=== PATIENT | female | born 1990 | race Caucasian/White ===

== ENCOUNTER 2024-08-28 13:35 | Emergency (ER) | payer BC, SELFPAY ==
[2024-08-28 13:36] VITALS: BMI 61.9
[2024-08-28 13:44] VITALS: BP 151/73; PULSE 100; RESP 17; TEMP 36.9; O2SAT 97
--- NOTE | 2024-08-28 13:55 | PD.EDHAND ---
Upper Extremity Injury RME/HPI General Chief Complaint: Hand/Wrist Problems Stated Complaint: rt thumb laceration Time Seen by Provider: 08/28/24 13:44 Arrival date/time: 08/28/24 13:35 33-year-old female presents emergency department complaints of injury to right thumb patient reports he is using a mandolin today and accidentally injured her right thumb. Patient does report tetanus up-to-date Limitations: no limitations Related Data Home Medications ?Medication ?Instructions ?Recorded ?Confirmed alprazolam 0.25 mg tablet (Xanax) 0.25 mg PO QDAY PRN Anxiety 07/07/23 07/07/23 escitalopram oxalate 20 mg tablet 20 mg PO QDAY 07/07/23 07/07/23 (Lexapro) tamoxifen 20 mg tablet 20 mg PO QDAY 07/07/23 07/07/23 trazodone 50 mg tablet 50 mg PO QDAY 07/07/23 07/07/23 Previous Rx's ?Medication ?Instructions ?Recorded docusate sodium 100 mg capsule 100 mg PO BID #40 caps 07/08/23 (Colace) ibuprofen 600 mg tablet 600 mg PO Q8H PRN pain (scale 07/08/23 score 4-6) #15 tabs tramadol 50 mg tablet 100 mg (2 x 50 mg) PO Q6H PRN pain 07/08/23 (scale score 7-10) #40 tabs Allergies Allergy/AdvReac Type Severity Reaction Status Date / Time acetaminophen [From Vicodin] AdvReac Vomiting Verified 08/28/24 13:38 hydrocodone [From Vicodin] AdvReac Vomiting Verified 08/28/24 13:38 Review of Systems Review of Systems Systems Reviewed: All systems reviewed, normal except as documented Constitutional Constitutional: Reports system reviewed and no additional complaints, except as documented, Denies fever(s) and Denies headache(s) Eyes Eyes: Reports system reviewed and no additional complaints, except as documented and Denies blurry vision ENT Ears, Nose, Mouth, and Throat: Reports system reviewed and no additional complaints, except as documented, Denies headache(s), Denies nasal congestion and Denies nasal discharge Cardiovascular Cardiovascular: Reports system reviewed and no additional complaints, except as documented, Denies chest pain and Denies dyspnea Respiratory Respiratory: Reports system reviewed and no additional complaints, except as documented, Denies chest congestion, Denies cough and Denies dyspnea Gastrointestinal Gastrointestinal: Reports system reviewed and no additional complaints, except as documented and Denies abdominal pain Integumentary/Breasts Skin/Breast: Reports system reviewed and no additional complaints, except as documented, Denies rash and Reports wounds (Avulsion right thumb) Neurologic Neurologic: Reports system reviewed and no additional complaints, except as documented, Reports as per HPI and Denies headache(s) Past Medical History Past Medical History NEUROLOGIC: Positive Neurological Disorders and Migraine; Negative Seizures CARDIAC: Positive Cardiac Disorders and Hypertension (no meds, Dr wants her to loose weight); Negative Congestive Heart Failure RESPIRATORY: Negative Chronic Obstructive Pulmonary Disease (COPD) GASTROINTESTINAL: Positive Gastrointestinal Disorders (liver enzymes elevated), Gall Bladder Disease and Obesity GENITOURINARY: Negative Genitourinary Disorders or Renal Disease REPRODUCTIVE: Positive Breast Cancer (Right breast cancer); Negative Endometriosis or Previous Pregnancies MUSCULOSKELETAL: Negative Musculoskeletal Disorders ENDOCRINE: Negative Endocrine Disorders, Diabetes Mellitus Type 1 or Diabetes Mellitus Type 2 HEMATOLOGIC: Negative Blood Disorders PSYCHO/SOCIAL: Positive Recreational Drug Use (MJ), Depression and Anxiety OTHER HISTORY: Positive Radiation Therapy (2021), Cancer and Breast Cancer (Right breast cancer); Negative Hospitalization, Autoimmune Disease, Shingles, Blood Transfusions, Blood Transfusion Reaction, Anesthesia Reactions or MRSA Family History FAMILY HISTORY: Positive Family Cardiac Disorders; Negative Family Cancer, Family Surgery or Family Anesthesia Reaction Surgical History SURGICAL: Positive Lumpectomy (Right 2021) Social History SMOKING STATUS: Current every day smoker SUBSTANCE USE: does not use ED Exam General Limitations: Present no limitations General appearance: Present alert and in no apparent distress Head Head exam: Present atraumatic Eye Eye exam: Present normal appearance, PERRL and EOMI ENT ENT exam: Present normal exam, normal oropharynx and mucous membranes moist Neck Neck exam: Present normal inspection, full ROM and trachea midline Chest Chest inspection: Present normal inspection and symmetric chest wall rise Respiratory Respiratory exam: Present normal lung sounds bilaterally Cardiovascular Cardiovascular exam: Present regular rate, normal rhythm and normal heart sounds Abdominal Exam Abdominal exam: Present soft and normal bowel sounds Extremities Exam Extremities exam: Present full ROM, tenderness, normal capillary refill and other (Avulsion distal tip right thumb); Absent joint swelling Back Exam Back exam: Present normal inspection and full ROM Neurological Exam Neurological exam: Present alert, oriented X3 and CN II-XII intact Psychiatric Psychiatric exam: Present normal affect and normal mood Skin Skin exam: Present warm, dry and other (Avulsion skin distal tip right thumb) Course Quality Measures none Orders Category Date Time Status Wound Care NOW Care 08/28/24 13:55 Active Vital Signs Vital signs: Vital Signs Temperature 98.5 F 08/28/24 13:44 Pulse Rate 100 08/28/24 13:44 Respiratory Rate 17 08/28/24 13:44 Blood Pressure 151/73 H 08/28/24 13:44 Pulse Oximetry (%) 97 08/28/24 13:44 Oxygen Delivery Method Room Air 08/28/24 13:44 O2 saturation 97% room air within normal limits Extremity Injury MDM Narrative MDM Narrative:: 33-year-old female presents emergency department complaints of injury to right thumb patient reports he is using a mandolin today and accidentally injured her right thumb. Patient does report tetanus up-to-date On exam patient has avulsion distal tip right thumb There is no skin to bring back together at this time there is a complete avulsion distal aspect skin. Wound irrigated Surgicel applied no active bleeding at time of discharge Patient discharged home in no distress to follow-up with primary care doctor in the next 24 to 48 hours and for any worsening symptoms to return to the ER immediately Patient data External records reviewed:: [facility] previous records Clinical information provided by:: patient Social determinants that could affect healthcare access:: none Patient has the following chronic illnesses:: See history How is presenting disease/condition affected by chronic disease/condition?: uneffected by Evaluation data The following diagnostics were reviewed and interpreted by me:: other (specify) (N/A) Lab and/or radiology exams considered but not ordered:: Consider not ordered Interpretation Summary: N/A Medications / Prescriptions Medications or Prescriptions considered but not ordered:: No meds Medication administrations:: No meds Consultations Consultation(s) initiated? (list below): No Diagnosis Upper Extremity Injury Differential Diagnosis: other (Laceration, abrasion, avulsion) Most likely diagnosis given after review of the tests above:: Avulsion Admission Indicated Admission indicated?: not indicated Admission Request Was there a request for admission?: No Disposition Plan Disposition Plan: Discharge Discharge Attestation Discharge Attestation: The patient and all family members were given an opportunity to ask questions and understood the discharge instructions. Discharge instructions specifically effects, indications for sooner follow up or return to the emergency department, and the expected course of current diagnosis. Patient condition: Stable Discharge Plan Plan Patient Disposition: HOME (Self Care) Disposition Comment: Stable Prescriptions/Referrals Prescriptions/Med Rec: No Action trazodone 50 mg Tablet 50 mg PO QDAY alprazolam [Xanax] 0.25 mg Tablet 0.25 mg PO QDAY PRN (Reason: Anxiety) tamoxifen 20 mg Tablet 20 mg PO QDAY escitalopram oxalate [Lexapro] 20 mg Tablet 20 mg PO QDAY docusate sodium [Colace] 100 mg capsule 100 mg PO BID Qty: 40 0RF ibuprofen 600 mg tablet 600 mg PO Q8H PRN (Reason: pain (scale score 4-6)) Qty: 15 0RF tramadol 50 mg tablet 100 mg PO Q6H PRN (Reason: pain (scale score 7-10)) Qty: 40 0RF Problem List Clinical Impression: Avulsion of skin of right thumb Patient/Caregiver Discharge Instructions Education Materials: ED Skin Avulsion Additional Instructions: Please follow up with your primary care doctor in the next 24-48hrs for any worsening symptoms return here immediately Print Language: Setswana Stand Alone Forms: Vicky Award Info., Patient Portal Info Letter PA/HEALTHCARE RISK CONTROL CONSULTANT Supervising Physician PA/HEALTHCARE RISK CONTROL CONSULTANT Supervising Physician: Dr. Salguero
== END 2024-08-28 14:28 | disposition home or self-care (01) ==
LOC: SERX 14:17
PROVIDERS: Emergency Provider Emergency Medicine; PCP Physician Assistant
DX: S61.011A Laceration without foreign body of right thumb without damage to nail, initial encounter (principal); W27.4XXA Contact with kitchen utensil, initial encounter
CPT/HCPCS: 99282

== ENCOUNTER → 2024-08-30 | Outpatient (CLI) | payer BC, SELFPAY ==
[2024-08-30 16:39] LABS: Basophils # (Auto) 0.1 Thou/mm3 (0.0-0.2); Basophils % (Auto) 1 % (0-2.5); Eosinophils # (Auto) 0.1 Thou/mm3 (0.0-0.5); Eosinophils % (Auto) 1 % (0-10); Hematocrit 43.4 % (36.0-46.0); Hemoglobin 14.2 g/dL (12.0-16.0); Immature Granulocytes % (Auto) 1 % (0-0); Immature Granulocytes Auto 0.11 Thou/mm3 (0.00-0.00); Lymphocytes # (Auto) 3.3 Thou/mm3 (1.0-4.8); Lymphocytes % (Auto) 33 % (10-50); Mean Corpuscular HGB Conc 32.7 g/dl (31.0-37.0); Mean Corpuscular Hemoglobin 30.3 pg (25.0-35.0); Mean Corpuscular Volume 93 fL (80-100); Monocytes # (Auto) 0.6 Thou/mm3 (0.0-0.8); Monocytes % (Auto) 6 % (0-12); Neutrophils # (Auto) 5.8 Thou/mm3 (1.8-7.7); Neutrophils % (Auto) 58 % (37-80); Nucleated Red Blood Cell % 0 /100 WBC (0); Platelet Count 361 Thou/mm3 (140-440); RDW Standard Deviation 43.3 fL (36.4-46.3); Red Blood Count 4.69 Miln/mm3 (4.00-5.20)
[2024-08-30 17:10] LABS: Alanine Aminotransferase 21 U/L (10-49); Albumin, Serum 4.4 gm/dL (3.5-5.0); Albumin/Globulin Ratio 1.5 (1.2-2.2); Alkaline Phosphatase 74 U/L (46-116); Anion Gap 7 (7-16); Aspartate Amino Transferase 21 U/L (0-34); BUN/Creatinine Ratio 14 Ratio (12-20); Bilirubin,Total 0.5 mg/dL (0.3-1.2); Blood Urea Nitrogen 13 mg/dL (9-23); Calcium 9.8 mg/dL (8.3-10.6); Calcium (Corrected) 9.8 mg/dL (8.5-10.1); Carbon Dioxide 27.5 mMol/L (20.0-31.0); Chloride 104 mMol/L (98-107); Creatinine (Component) 0.9 mg/dL (0.6-1.3); Globulin 2.9 gm/dL (2.3-3.5); Glucose 96 mg/dL (74-106); Osmolality,Calculated 275 (275-295); Potassium 4.2 mMol/L (3.4-5.1); Sodium 138 mMol/L (136-145); Total Protein 7.3 gm/dL (5.7-8.2); eGFR > 60 See Note
[2024-08-30 17:21] LABS: CA 15-3 5.4 U/mL (<32.4); Carcinoembryonic Antigen 0.8 ng/mL (0.0-5.0)
== END | disposition home or self-care (01) ==
LOC: SCTO 15:36
PROVIDERS: PCP Physician Assistant; Referring Provider Nurse Practitioner Family; Visit Provider Nurse Practitioner Family
DX: C50.511 Malignant neoplasm of lower-outer quadrant of right female breast (principal)
CPT/HCPCS: 36415; 80053; 82378; 85025; 86300

== ENCOUNTER 2024-09-01 09:04 | Outpatient (RCR) | payer BC, SELFPAY | END 2024-09-16 23:59 | disposition home or self-care (01) | LOC: SCTC 09:04 | PROVIDERS: PCP Physician Assistant; Referring Provider Physician Assistant; Visit Provider Nurse Practitioner Family | DX: Z51.11 Encounter for antineoplastic chemotherapy (principal); C50.811 Malignant neoplasm of overlapping sites of right female breast; Z17.0 Estrogen receptor positive status [ER+]; Z17.21 Progesterone receptor positive status; Z17.32 Human epidermal growth factor receptor 2 negative status; Z90.11 Acquired absence of right breast and nipple; Z92.3 Personal history of irradiation; L40.9 Psoriasis, unspecified; E66.01 Morbid (severe) obesity due to excess calories; F41.9 Anxiety disorder, unspecified; F32.A Depression, unspecified; Z79.810 Long term (current) use of selective estrogen receptor modulators (SERMs) | CPT/HCPCS: 96402; J9217 ==

== ENCOUNTER → 2024-09-20 | Outpatient (CLI) | payer BC, SELFPAY ==
--- NOTE | 2024-09-20 13:40 | XR_ITS ---
Examination: Bone densitometry Date and time of exam:September 20, 2024 1351 hours INDICATIONS: 33-year-old female breast carcinoma diagnosis Technique: Lumbar spine and hip total bone mineralization values of an calculated. Peak reference and age match control results have been displayed. Findings: Lumbar spine total bone mineralization is1.095 gm/cm2. This is 0.4 standard deviations above peak reference. This is 0.5 standard deviations above age-matched controls. Hip total bone mineralization is 1.014 gm/cm2 This is 0.6 standard deviations above peak reference. This is 0.7 standard deviations above age-matched controls Impression: There is normal mineralization based on lumbar spine measurements. There is normal mineralization based on hip measurements
== END | disposition home or self-care (01) ==
LOC: CDIM 13:21
PROVIDERS: PCP Physician Assistant; Referring Provider Nurse Practitioner Family; Visit Provider Nurse Practitioner Family
DX: C50.511 Malignant neoplasm of lower-outer quadrant of right female breast (principal)
CPT/HCPCS: 77080

== ENCOUNTER → 2024-10-03 | Outpatient (CLI) | payer BC, SELFPAY ==
[2024-10-03 17:22] LABS: Basophils # (Auto) 0.1 Thou/mm3 (0.0-0.2); Basophils % (Auto) 1 % (0-2.5); Eosinophils # (Auto) 0.1 Thou/mm3 (0.0-0.5); Eosinophils % (Auto) 1 % (0-10); Hematocrit 39.5 % (36.0-46.0); Hemoglobin 13.4 g/dL (12.0-16.0); Immature Granulocytes % (Auto) 1 % (0-0); Immature Granulocytes Auto 0.05 Thou/mm3 (0.00-0.00); Lymphocytes # (Auto) 3.2 Thou/mm3 (1.0-4.8); Lymphocytes % (Auto) 35 % (10-50); Mean Corpuscular HGB Conc 33.9 g/dl (31.0-37.0); Mean Corpuscular Volume 91 fL (80-100); Monocytes # (Auto) 0.6 Thou/mm3 (0.0-0.8); Monocytes % (Auto) 6 % (0-12); Neutrophils # (Auto) 5.2 Thou/mm3 (1.8-7.7); Neutrophils % (Auto) 57 % (37-80); Nucleated Red Blood Cell % 0 /100 WBC (0); Platelet Count 338 Thou/mm3 (140-440); RDW Standard Deviation 43.2 fL (36.4-46.3); Red Blood Count 4.32 Miln/mm3 (4.00-5.20); White Blood Count 9.3 Thou/mm3 (3.6-11.0)
[2024-10-03 17:44] LABS: Alanine Aminotransferase 23 U/L (10-49); Albumin, Serum 4.5 gm/dL (3.5-5.0); Albumin/Globulin Ratio 1.7 (1.2-2.2); Alkaline Phosphatase 79 U/L (46-116); Anion Gap 10 (7-16); Aspartate Amino Transferase 20 U/L (0-34); BUN/Creatinine Ratio 12 Ratio (12-20); Bilirubin,Total 0.4 mg/dL (0.3-1.2); Blood Urea Nitrogen 12 mg/dL (9-23); Calcium 9.7 mg/dL (8.3-10.6); Calcium (Corrected) 9.7 mg/dL (8.5-10.1); Carbon Dioxide 25.9 mMol/L (20.0-31.0); Chloride 102 mMol/L (98-107); Globulin 2.6 gm/dL (2.3-3.5); Glucose 93 mg/dL (74-106); Osmolality,Calculated 275 (275-295); Potassium 4.3 mMol/L (3.4-5.1); Sodium 138 mMol/L (136-145); Total Protein 7.1 gm/dL (5.7-8.2); eGFR > 60 See Note
[2024-10-03 18:01] LABS: CA 15-3 7.1 U/mL (<32.4); Carcinoembryonic Antigen 0.7 ng/mL (0.0-5.0)
== END | disposition home or self-care (01) ==
LOC: COPL 16:29 → SCTO 16:32
PROVIDERS: PCP Physician Assistant; Referring Provider Nurse Practitioner Family; Visit Provider Nurse Practitioner Family
DX: C50.511 Malignant neoplasm of lower-outer quadrant of right female breast (principal)
CPT/HCPCS: 36415; 80053; 82378; 85025; 86300

== ENCOUNTER 2024-10-04 07:17 | Outpatient (RCR) | payer BC, SELFPAY | END 2024-10-17 23:59 | disposition home or self-care (01) | LOC: SCTC 07:17 | PROVIDERS: PCP Physician Assistant; Referring Provider Physician Assistant; Visit Provider Nurse Practitioner Family | DX: C50.811 Malignant neoplasm of overlapping sites of right female breast (principal); Z17.0 Estrogen receptor positive status [ER+]; Z17.21 Progesterone receptor positive status; Z17.32 Human epidermal growth factor receptor 2 negative status; Z90.11 Acquired absence of right breast and nipple; Z92.3 Personal history of irradiation; Z79.810 Long term (current) use of selective estrogen receptor modulators (SERMs); E66.01 Morbid (severe) obesity due to excess calories; F41.9 Anxiety disorder, unspecified; F32.A Depression, unspecified | CPT/HCPCS: 96402; J9217 ==

== ENCOUNTER → 2024-11-14 | Outpatient (CLI) | payer BC, SELFPAY ==
[2024-11-14 17:33] LABS: Basophils # (Auto) 0.1 Thou/mm3 (0.0-0.2); Basophils % (Auto) 1 % (0-2.5); Eosinophils # (Auto) 0.1 Thou/mm3 (0.0-0.5); Eosinophils % (Auto) 1 % (0-10); Hematocrit 42.6 % (36.0-46.0); Hemoglobin 14.1 g/dL (12.0-16.0); Immature Granulocytes % (Auto) 1 % (0-0); Immature Granulocytes Auto 0.08 Thou/mm3 (0.00-0.00); Lymphocytes % (Auto) 26 % (10-50); Mean Corpuscular HGB Conc 33.1 g/dl (31.0-37.0); Mean Corpuscular Hemoglobin 30.5 pg (25.0-35.0); Mean Corpuscular Volume 92 fL (80-100); Monocytes # (Auto) 0.8 Thou/mm3 (0.0-0.8); Monocytes % (Auto) 7 % (0-12); Neutrophils # (Auto) 7.6 Thou/mm3 (1.8-7.7); Neutrophils % (Auto) 65 % (37-80); Nucleated Red Blood Cell % 0 /100 WBC (0); Platelet Count 331 Thou/mm3 (140-440); RDW Standard Deviation 42.5 fL (36.4-46.3); Red Blood Count 4.63 Miln/mm3 (4.00-5.20); White Blood Count 11.6 Thou/mm3 (3.6-11.0)
[2024-11-14 18:36] LABS: Alanine Aminotransferase 17 U/L (10-49); Albumin, Serum 4.4 gm/dL (3.5-5.0); Albumin/Globulin Ratio 1.4 (1.2-2.2); Alkaline Phosphatase 81 U/L (46-116); Anion Gap 8 (7-16); Aspartate Amino Transferase < 8 U/L (0-34); BUN/Creatinine Ratio 17 Ratio (12-20); Bilirubin,Total 0.3 mg/dL (0.3-1.2); Blood Urea Nitrogen 15 mg/dL (9-23); Calcium 9.7 mg/dL (8.3-10.6); Calcium (Corrected) 9.7 mg/dL (8.5-10.1); Carbon Dioxide 27.4 mMol/L (20.0-31.0); Chloride 101 mMol/L (98-107); Creatinine (Component) 0.9 mg/dL (0.6-1.3); Globulin 3.1 gm/dL (2.3-3.5); Glucose 92 mg/dL (74-106); Osmolality,Calculated 272 (275-295); Potassium 4.4 mMol/L (3.4-5.1); Sodium 136 mMol/L (136-145); Total Protein 7.5 gm/dL (5.7-8.2); eGFR > 60 See Note
[2024-11-14 18:37] LABS: CA 15-3 5.8 U/mL (<32.4); Carcinoembryonic Antigen 0.6 ng/mL (0.0-5.0)
== END | disposition home or self-care (01) ==
LOC: SCTO 16:44
PROVIDERS: PCP Physician Assistant; Referring Provider Nurse Practitioner Family; Visit Provider Nurse Practitioner Family
DX: C50.511 Malignant neoplasm of lower-outer quadrant of right female breast (principal)
CPT/HCPCS: 36415; 80053; 82378; 85025; 86300

== ENCOUNTER 2024-11-15 14:54 | Outpatient (RCR) | payer BC, SELFPAY ==
--- NOTE | 2024-11-19 21:22 | CTCFLWUP_ITS ---
Patient: MARIE DUNCAN : 1990 Page 2 of 3 FOLLOW UP NOTE DATE OF SERVICE: 11/15/2024 NAME: MARIE DUNCAN ACCOUNT: [id number] : 1990 AGE: 34 INTERVAL HISTORY: ONCOLOGY HISTORY: DIAGNOSIS: Malignant neoplasm of lower-outer quadrant of right female breast [ICD10] C50.511 Stage Ia (pT1b (7 mm) snN0), grade 1, ER strongly positive (85%), OH strongly positive (95%), HER2/dheeraj negative, Ki-67 less than 5%, Oncotype recurrence score 21, infiltrating ductal carcinoma of the right breast. S/p lumpectomy and sentinel lymph node biopsy (02/02/2022) S/p adjuvant radiation therapy (04/15/2022 - 06/03/2022) BRCA 1and2 negative. On tamoxifen since November 2021. Unable to tolerate Lupron which was causing significant hot flashes ( 05/21/2022-07/27/2022). Lupron restarted 11/15/2023 Psoriasis. Morbid obesity. 364 pounds. Anxiety and depression DATE OF DIAGNOSIS: 10/29/2021 ER/OH positive HER2 negative PATHOLOGY: Invasive ductal carcinoma Stage Ia (pT1b (7 mm) snN0), grade 1, ER strongly positive (85%), OH strongly positive (95%), HER2/dheeraj negative, Ki-67 less than 5%, Oncotype recurrence score 21, infiltrating ductal carcinoma of the right breast. S/p lumpectomy and sentinel lymph node biopsy (02/02/2022) S/p adjuvant radiation therapy (04/15/2022 - 06/03/2022) BRCA 1and2 negative. On tamoxifen (11/2021-)and leuprolide (05/21/2022-) Unable to tolerate Lupron which was causing significant hot flashes ( 05/21/2022-07/27/2022). Lupron restarted 11/15/2023 Tolerating tamoxifen and Lupron well. Last menstrual period was 02/2023 Discontinue tamoxifen Start anastrozole 1 mg daily. Will take anastrozole for 7 years, followed by 2 years of tamoxifen. Continue Lupron7.5mg IM monthly. Right breast ultrasound and right breast diagnostic mammogram. #2. Risk of osteoporosis DEXA Start Citracal with vitamin D. #3. Psoriasis. Continue following up with PCP #4. Morbid obesity. 354 LB Lifestyle modification #5. Anxiety and depression Continue following up with PCP STAGE/TNM: T1b N0 M0 TREATMENT HISTORY: Care?Plan Start?Date Cycle Day Intent Lupron?7.5?mg 04/27/2022 1 30 Curative?(adjuvant) Lupron?7.5?mg 11/03/2023 1 30 Palliative Lupron?22.5?mg?q?3?mon 05/15/2024 1 90 Curative?(adjuvant) Lupron?7.5?mg 05/25/2024 1 30 Curative?(adjuvant) HISTORY OF PRESENT ILLNESS: PREVIOUS NOTE: Marie Duncan is a 34-year-old ENG speaking female with history of psoriasis as well as morbid obesity was having pain in the right breast for about a year. Her primary care doctor felt a nodule in the right breast in September 2021. 10/08/2021: Right breast diagnostic mammogram as well as right breast ultrasound? 10/29/2021: Patient had needle core biopsy of the right breast lesion? 11/13/2021: Bilateral breast MRI? 11/21/2021: BRCA 1 and 2 negative ([facility] diagnostic testing) November 2021: Patient was started on tamoxifen. 02/02/2022: Ms. Duncan had right breast lumpectomy and sentinel lymph node biopsy. 03/30/2022: Oncotype DX test 04/15/2022 - 06/03/2022: Ms. Duncan received 6000 cGy radiation therapy to the right breast in 49 fractions. 05/21/2022: Patient received first dose of Lupron 7.5 mg IM. 07/27/2022: Lupron discontinued due to significant side effects including hot flashes which were making her feel miserable. 11/15/2023: Lupron restarted 07/24/2024: Left breast diagnostic mammogram-benign findings, return to yearly follow-up mammogram 07/24/2024: Left breast ultrasound-negative study OTHER MEDICAL HISTORY/CONDITIONS: Covid - Nov 2021 High cholesterol - diet controlled Right breast RFID guided tylectomy with vertical mammoplasty/tissue rearrangement and Left breast cresent mammoplasty for symmetrization - 02/02/22 FAMILY HISTORY: Patient?denies?family?cancer?history. 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 Tobacco?Pack?per?Day:?0 Tobacco?Use?Years:?0 Tobacco?Use:?0 ETOH?Use:?Socially Drug?Note:?Smokes marijuana daily for 2 yrs Social?History?Note:?Lives?with? PUBLIC HEALTH NUTRITIONIST HISTORY: Menarche?-?Age:?11 Date?LMP:?12/22/2021 Hormone?Use:? control medication x 5yrs :?0 Live?Births:?0 Age?1st?:?1 MEDICATIONS: 1. anastrozole - 1 mg 1 tab 1 tab po q daily 2. Citracal + D Slow Release - 600 mg-12.5 mcg (500 unit) 1 tab one tab po twice a day 3. Lexapro - 20 mg 1 tab Daily 4. lisinopril - 20 mg 1 tab Daily 5. tamoxifen - 20 mg 1 tab Daily 6. traZODone - 50 mg 1 tab Daily 7. Xanax - 0.25 mg Daily Medications Last Reconciled by Mandy Smith MA on 11/15/2024 ALLERGIES: tramadol; hydrocodone-acetaminophen REVIEW OF SYSTEMS: A complete 14-point review of systems was performed and is negative except as noted in interval history. PHYSICAL EXAMINATION: VITAL SIGNS: Temperature?100, B/P?154/85, Oxygen?Saturation?96% Weight?356?lbs (Change?since?11/02/24:?2.2?lbs) PAIN: 0 - No pain ECOG Performance Status: 0 - Asymptomatic and fully active GENERAL APPEARANCE: Appears well, in no apparent distress, appropriately interactive. HEENT: Normocephalic, no temporal wasting, normal conjunctiva, no scleral icterus, normal hearing, lips without lesions, neck normal range of motion. CARDIOVASCULAR: Not assessed. PULMONARY: Normal respiratory effort, no respiratory distress or use of accessory muscles, speaking in full sentences, no tachypnea. EXTREMITIES: No pedal edema or cyanosis. SKIN: Normal skin appearance. NEUROLOGIC: Alert and oriented x4. PSHYCHIATRIC: Appropriate affect, mood normal, behavior normal, intact thought and speech. LABORATORY DATA: I have personally reviewed and interpreted each of the patient?s relevant lab tests, abnormal findings are below: Date 11/14/24 ??WHITE?BLOOD?COUNT?(Thou/mm3) 11.6?H ??RED?BLOOD?COUNT?(Miln/mm3) 4.63 ??HEMOGLOBIN?(gm/dl) 14.1 ??HEMATOCRIT?(%) 42.6 ??PLATELET?COUNT?(Thou/mm3) 331 ??NEUTROPHILS?%,?AUTO?(%) 65 ??LYMPH?%,?AUTO?(%) 26 ??NEUTROPHILS,?AUTO?(Thou/mm3) 7.6 ASSESSMENT/PLAN: Stage Ia (pT1b (7 mm) snN0), grade 1, ER strongly positive (85%), OH strongly positive (95%), HER2/dheeraj negative, Ki-67 less than 5%, Oncotype recurrence score 21, infiltrating ductal carcinoma of the right breast. S/p lumpectomy and sentinel lymph node biopsy (02/02/2022) S/p adjuvant radiation therapy (04/15/2022 - 06/03/2022) BRCA 1and2 negative. On tamoxifen (11/2021-)and leuprolide (05/21/2022-) Unable to tolerate Lupron which was causing significant hot flashes ( 05/21/2022-07/27/2022). Lupron restarted 11/15/2023 Tolerating tamoxifen and Lupron well. Last menstrual period was 02/2023 Discontinue tamoxifen Start anastrozole 1 mg daily. Will take anastrozole for 7 years, followed by 2 years of tamoxifen. Continue Lupron7.5mg IM monthly. Right breast ultrasound and right breast diagnostic mammogram. #2. Risk of osteoporosis DEXA shows normal density On Citracal with vitamin D. Will start adjuvant Zometa for prevention of breast cancer and to prevent osteoporosis once dental clearance #3. Psoriasis. Continue following up with PCP #4. Morbid obesity. 354 LB Lifestyle modification #5. Anxiety and depression Continue following up with PCP CBC CMP dental evaluation for starting Zometa RETURN TO CLINIC: 6 months BILLING AND COMPLIANCE: I reviewed external records from providers outside my specialty as summarized above. I spent a total of 50 minutes on this patient?s care on the day of their visit excluding time spent related to any billed procedures. This time includes time spent with the patient as well as time spent documenting in the medical record, reviewing patients records and tests, obtaining history, placing orders, communicating with other healthcare professionals, counseling the patient, family or caregiver, and/or care coordination for the diagnoses above. Electronically Signed by: Jose Collazo MD T: 9:20 PM CC: PCP: Babs Sauer Referring: Babs Sauer This document was completed utilizing speech recognition software. Grammatical errors, random word insertions, pronoun errors, and incomplete sentences are an occasional consequence of this system due to software limitations, ambient noise, and hardware issues. Any formal questions or concerns about the content, text or information contained within the body of this dictation should be directly addressed to the provider for clarification.
== END 2024-11-17 23:59 | disposition home or self-care (01) ==
LOC: SCTC 14:54
PROVIDERS: PCP Physician Assistant; Referring Provider Physician Assistant; Visit Provider Internal Medicine Hematology & Oncology
DX: Z51.11 Encounter for antineoplastic chemotherapy (principal); C50.811 Malignant neoplasm of overlapping sites of right female breast; Z17.0 Estrogen receptor positive status [ER+]; Z17.21 Progesterone receptor positive status; Z17.32 Human epidermal growth factor receptor 2 negative status; Z92.3 Personal history of irradiation; Z79.811 Long term (current) use of aromatase inhibitors; Z79.818 Long term (current) use of other agents affecting estrogen receptors and estrogen levels; E66.01 Morbid (severe) obesity due to excess calories
CPT/HCPCS: 96402; 99212; J9217; G0463

== ENCOUNTER 2024-12-11 08:35 | Outpatient (RCR) | payer BC, SELFPAY | END 2024-12-15 23:59 | disposition home or self-care (01) | LOC: SCTC 08:35 | PROVIDERS: PCP Physician Assistant; Referring Provider Physician Assistant; Visit Provider Internal Medicine Hematology & Oncology | DX: Z51.11 Encounter for antineoplastic chemotherapy (principal); C50.811 Malignant neoplasm of overlapping sites of right female breast; Z17.0 Estrogen receptor positive status [ER+]; Z17.21 Progesterone receptor positive status; Z17.32 Human epidermal growth factor receptor 2 negative status; Z90.11 Acquired absence of right breast and nipple; Z92.3 Personal history of irradiation; Z79.810 Long term (current) use of selective estrogen receptor modulators (SERMs); Z79.818 Long term (current) use of other agents affecting estrogen receptors and estrogen levels; E66.01 Morbid (severe) obesity due to excess calories; L40.9 Psoriasis, unspecified; F41.9 Anxiety disorder, unspecified; F32.A Depression, unspecified | CPT/HCPCS: 96402; J9217 ==

== ENCOUNTER 2025-01-10 09:28 | Outpatient (RCR) | payer BC, SELFPAY | END 2025-01-15 23:59 | disposition home or self-care (01) | LOC: SCTC 09:28 | PROVIDERS: PCP Family Medicine; Referring Provider Internal Medicine Hematology & Oncology; Visit Provider Internal Medicine Hematology & Oncology | DX: Z51.11 Encounter for antineoplastic chemotherapy (principal); C50.811 Malignant neoplasm of overlapping sites of right female breast; Z17.0 Estrogen receptor positive status [ER+]; Z17.21 Progesterone receptor positive status; Z17.32 Human epidermal growth factor receptor 2 negative status; E66.01 Morbid (severe) obesity due to excess calories; Z90.11 Acquired absence of right breast and nipple; Z92.3 Personal history of irradiation; Z79.811 Long term (current) use of aromatase inhibitors; L40.9 Psoriasis, unspecified | CPT/HCPCS: 36591; 96402; J9217 ==

== ENCOUNTER → 2025-02-14 | Outpatient (CLI) | payer BC, SELFPAY ==
[2025-02-14 17:35] LABS: Basophils # (Auto) 0.1 Thou/mm3 (0.0-0.2); Basophils % (Auto) 1 % (0-2.5); Eosinophils # (Auto) 0.2 Thou/mm3 (0.0-0.5); Eosinophils % (Auto) 1 % (0-10); Hemoglobin 14.1 g/dL (12.0-16.0); Immature Granulocytes % (Auto) 1 % (0-0); Immature Granulocytes Auto 0.11 Thou/mm3 (0.00-0.00); Lymphocytes % (Auto) 26 % (10-50); Mean Corpuscular HGB Conc 33.6 g/dl (31.0-37.0); Mean Corpuscular Hemoglobin 30.1 pg (25.0-35.0); Mean Corpuscular Volume 90 fL (80-100); Monocytes # (Auto) 0.8 Thou/mm3 (0.0-0.8); Monocytes % (Auto) 7 % (0-12); Neutrophils # (Auto) 7.4 Thou/mm3 (1.8-7.7); Neutrophils % (Auto) 64 % (37-80); Nucleated Red Blood Cell % 0 /100 WBC (0); Platelet Count 330 Thou/mm3 (140-440); RDW Standard Deviation 43.1 fL (36.4-46.3); Red Blood Count 4.68 Miln/mm3 (4.00-5.20); White Blood Count 11.4 Thou/mm3 (3.6-11.0)
[2025-02-14 17:51] LABS: Alanine Aminotransferase 25 U/L (10-49); Albumin, Serum 4.2 gm/dL (3.5-5.0); Albumin/Globulin Ratio 1.4 (1.2-2.2); Alkaline Phosphatase 89 U/L (46-116); Anion Gap 9 (7-16); Aspartate Amino Transferase 21 U/L (0-34); BUN/Creatinine Ratio 14 Ratio (12-20); Bilirubin,Total 0.4 mg/dL (0.3-1.2); Blood Urea Nitrogen 15 mg/dL (9-23); Calcium 9.4 mg/dL (8.3-10.6); Calcium (Corrected) 9.4 mg/dL (8.5-10.1); Carbon Dioxide 27.4 mMol/L (20.0-31.0); Chloride 105 mMol/L (98-107); Creatinine (Component) 1.1 mg/dL (0.6-1.3); Globulin 2.9 gm/dL (2.3-3.5); Glucose 105 mg/dL (74-106); Osmolality,Calculated 282 (275-295); Potassium 4.4 mMol/L (3.4-5.1); Sodium 141 mMol/L (136-145); Total Protein 7.1 gm/dL (5.7-8.2); eGFR > 60 See Note
== END | disposition home or self-care (01) ==
LOC: SCTO 16:11
PROVIDERS: PCP Physician Assistant; Referring Provider Internal Medicine Hematology & Oncology; Visit Provider Internal Medicine Hematology & Oncology
DX: C50.511 Malignant neoplasm of lower-outer quadrant of right female breast (principal)
CPT/HCPCS: 36415; 80053; 85025

== ENCOUNTER 2025-02-15 13:05 | Outpatient (RCR) | payer BC, SELFPAY | END 2025-03-17 23:59 | disposition home or self-care (01) | LOC: SCTC 13:05 | PROVIDERS: PCP Family Medicine; Referring Provider Family Medicine; Visit Provider Internal Medicine Hematology & Oncology | DX: Z51.11 Encounter for antineoplastic chemotherapy (principal); C50.811 Malignant neoplasm of overlapping sites of right female breast; Z17.0 Estrogen receptor positive status [ER+]; Z17.21 Progesterone receptor positive status; Z17.32 Human epidermal growth factor receptor 2 negative status; Z90.11 Acquired absence of right breast and nipple; Z92.3 Personal history of irradiation; Z79.811 Long term (current) use of aromatase inhibitors; L40.9 Psoriasis, unspecified; E66.01 Morbid (severe) obesity due to excess calories; F41.9 Anxiety disorder, unspecified; F32.A Depression, unspecified | CPT/HCPCS: 96402; J9217 ==

== ENCOUNTER → 2025-03-26 | Outpatient (CLI) | payer BC, SELFPAY ==
--- NOTE | 2025-03-26 11:00 | XR_ITS ---
Examination: Breast ultrasound, unilateral, right complete Date and time of exam: March 26, 2025 1105 hours INDICATIONS: Personal history right breast cancer lumpectomy 2021 with right breast pain 2 years Technique: Real-time heredia scale ultrasonographic imaging performed right breast including all 4 quadrants as well as nipple retroareolar and axillary region. Findings: 11:00 cyst 3 x 4 mm No solid nodules IMPRESSION: BI-RADS Category 2: Benign findings
--- NOTE | 2025-03-26 11:30 | XR_ITS ---
Examination: Diagnostic digital mammography, unilateral, right Computer aided detection 3-D breast Tomosynthesis, unilateral Date and time of exam: March 26, 2025 1119 hours Compared to mammograms dating to October 08, 2021 INDICATIONS: History right breast lumpectomy 2021 Technique: Nonmagnified MLO, CC views of the right breast have been obtained, reconstructed from 3-D Tomosynthesis images. R2 computer aided detection program utilized for evaluation of suspicious masses and/or abnormal calcifications. 3-D Tomosynthesis images obtained. Findings: Scattered areas of fibroglandular density Multiple surgical clips nipple level with area of fat necrosis No suspicious mass Impression: BI-RADS category 2: Benign findings Recommend yearly follow-up mammography
== END | disposition home or self-care (01) ==
PROVIDERS: PCP Physician Assistant; Referring Provider Surgery; Visit Provider Surgery
DX: R92.321 Mammographic fibroglandular density, right breast (principal); N60.01 Solitary cyst of right breast; C50.111 Malignant neoplasm of central portion of right female breast
CPT/HCPCS: 76641; 77061; 77065; G0279

== ENCOUNTER 2025-03-28 08:01 | Outpatient (RCR) | payer BC, SELFPAY | END 2025-04-16 23:59 | disposition home or self-care (01) | LOC: SCTC 08:01 | PROVIDERS: PCP Physician Assistant; Referring Provider Internal Medicine Hematology & Oncology; Visit Provider Internal Medicine Hematology & Oncology | DX: Z51.11 Encounter for antineoplastic chemotherapy (principal); C50.811 Malignant neoplasm of overlapping sites of right female breast; Z17.0 Estrogen receptor positive status [ER+]; Z17.21 Progesterone receptor positive status; Z17.32 Human epidermal growth factor receptor 2 negative status; Z92.3 Personal history of irradiation; Z79.811 Long term (current) use of aromatase inhibitors; E66.01 Morbid (severe) obesity due to excess calories; F41.9 Anxiety disorder, unspecified; F32.A Depression, unspecified | CPT/HCPCS: 96402; J9217 ==

== ENCOUNTER 2025-05-09 14:51 | Outpatient (RCR) | payer BC, SELFPAY | END 2025-05-17 23:59 | disposition home or self-care (01) | LOC: SCTC 14:51 | PROVIDERS: PCP Physician Assistant; Referring Provider Physician Assistant; Visit Provider Nurse Practitioner Family | DX: Z51.11 Encounter for antineoplastic chemotherapy (principal); C50.811 Malignant neoplasm of overlapping sites of right female breast; Z17.0 Estrogen receptor positive status [ER+]; Z17.21 Progesterone receptor positive status; Z17.32 Human epidermal growth factor receptor 2 negative status; Z79.811 Long term (current) use of aromatase inhibitors; Z90.11 Acquired absence of right breast and nipple; E66.01 Morbid (severe) obesity due to excess calories; L40.9 Psoriasis, unspecified; F41.9 Anxiety disorder, unspecified; F32.A Depression, unspecified | CPT/HCPCS: 96402; 99212; J9217; G0463 ==

== ENCOUNTER 2025-06-12 11:01 | Outpatient (RCR) | payer BC, SELFPAY | END 2025-06-17 23:59 | disposition home or self-care (01) | LOC: SCTC 11:01 | PROVIDERS: PCP Physician Assistant; Referring Provider Physician Assistant; Visit Provider Nurse Practitioner Family | DX: Z51.11 Encounter for antineoplastic chemotherapy (principal); C50.811 Malignant neoplasm of overlapping sites of right female breast; Z17.0 Estrogen receptor positive status [ER+]; Z17.21 Progesterone receptor positive status; Z17.32 Human epidermal growth factor receptor 2 negative status; Z90.11 Acquired absence of right breast and nipple | CPT/HCPCS: 96402; J9217 ==

== ENCOUNTER → 2025-07-24 | Outpatient (CLI) | payer BC, SELFPAY ==
[2025-07-24 17:31] LABS: Basophils # (Auto) 0.1 Thou/mm3 (0.0-0.2); Basophils % (Auto) 1 % (0-2.5); Eosinophils # (Auto) 0.2 Thou/mm3 (0.0-0.5); Eosinophils % (Auto) 2 % (0-10); Hematocrit 42.4 % (36.0-46.0); Hemoglobin 14.0 g/dL (12.0-16.0); Immature Granulocytes Auto 0.11 Thou/mm3 (0.00-0.00); Lymphocytes # (Auto) 2.9 Thou/mm3 (1.0-4.8); Lymphocytes % (Auto) 30 % (10-50); Mean Corpuscular HGB Conc 33.0 g/dl (31.0-37.0); Mean Corpuscular Hemoglobin 29.7 pg (25.0-35.0); Mean Corpuscular Volume 90 fL (80-100); Monocytes # (Auto) 0.6 Thou/mm3 (0.0-0.8); Monocytes % (Auto) 6 % (0-12); Neutrophils # (Auto) 5.6 Thou/mm3 (1.8-7.7); Neutrophils % (Auto) 59 % (37-80); Nucleated Red Blood Cell # 0.00 Thou/mm3 (0.00-0.00); Nucleated Red Blood Cell % 0 /100 WBC (0); Platelet Count 321 Thou/mm3 (140-440); RDW Standard Deviation 42.4 fL (36.4-46.3); Red Blood Count 4.71 Miln/mm3 (4.00-5.20); White Blood Count 9.4 Thou/mm3 (3.6-11.0)
[2025-07-24 17:48] LABS: Alanine Aminotransferase 29 U/L (10-49); Albumin, Serum 4.1 gm/dL (3.5-5.0); Albumin/Globulin Ratio 1.5 (1.2-2.2); Alkaline Phosphatase 102 U/L (46-116); Anion Gap 10 (7-16); Aspartate Amino Transferase 33 U/L (0-34); BUN/Creatinine Ratio 8 Ratio (12-20); Bilirubin,Total 0.3 mg/dL (0.3-1.2); Blood Urea Nitrogen 11 mg/dL (9-23); Calcium 9.0 mg/dL (8.3-10.6); Calcium (Corrected) 9.0 mg/dL (8.5-10.1); Carbon Dioxide 24.6 mMol/L (20.0-31.0); Chloride 105 mMol/L (98-107); Creatinine (Component) 1.3 mg/dL (0.6-1.3); Globulin 2.8 gm/dL (2.3-3.5); Glucose 109 mg/dL (74-106); Osmolality,Calculated 279 (275-295); Potassium 4.6 mMol/L (3.4-5.1); Sodium 140 mMol/L (136-145); Total Protein 6.9 gm/dL (5.7-8.2); eGFR 55 See Note
== END | disposition home or self-care (01) ==
PROVIDERS: PCP Physician Assistant; Referring Provider Internal Medicine Hematology & Oncology; Visit Provider Internal Medicine Hematology & Oncology
DX: C50.511 Malignant neoplasm of lower-outer quadrant of right female breast (principal)
CPT/HCPCS: 36415; 80053; 85025

== ENCOUNTER 2025-07-26 14:00 | Outpatient (RCR) | payer BC, SELFPAY | END 2025-08-17 23:59 | disposition home or self-care (01) | LOC: SCTC 14:00 | PROVIDERS: PCP Physician Assistant; Referring Provider Physician Assistant; Visit Provider Nurse Practitioner Family | DX: Z51.11 Encounter for antineoplastic chemotherapy (principal); C50.811 Malignant neoplasm of overlapping sites of right female breast; Z17.0 Estrogen receptor positive status [ER+]; Z17.21 Progesterone receptor positive status; Z17.32 Human epidermal growth factor receptor 2 negative status; Z90.11 Acquired absence of right breast and nipple; Z79.811 Long term (current) use of aromatase inhibitors | CPT/HCPCS: 96402; J9217 ==

== ENCOUNTER → 2025-08-16 | Outpatient (CLI) | payer BC, SELFPAY ==
[2025-08-16 10:10] LABS: HCG Qualitative,Urine Negative
== END | disposition home or self-care (01) ==
LOC: SMRI 08:45 → SLAB 08-23 08:02
PROVIDERS: PCP Physician Assistant; Referring Provider Nurse Practitioner Family; Visit Provider Nurse Practitioner Family
DX: Z32.00 Encounter for pregnancy test, result unknown (principal)
CPT/HCPCS: 81025

== ENCOUNTER → 2025-08-23 | Outpatient (CLI) | payer BC, SELFPAY ==
--- NOTE | 2025-08-23 09:30 | XR_ITS ---
Examination: Breast ultrasound complete, bilateral Date and time of exam: August 23, 2025, 0956 hours INDICATIONS: History right breast cancer lumpectomy 2021 right breast pain 2 years. Technique: Real-time grayscale ultrasonographic imaging bilateral breasts, including all 4 quadrants as well as nipple retroareolar and axillary regions. Findings: Sonographic images right breast 7:00 nodule with shadowing 8 x 8 mm circumscribed Sonographic images left breast No cystic or solid mass IMPRESSION: BI-RADS Category 3: Probably benign findings Recommend 1 additional 6-month right breast sonogram follow-up to document stability of 7:00 nodule described above
--- NOTE | 2025-08-23 10:30 | XR_ITS ---
Examination: Diagnostic digital mammography, bilateral Computer aided detection 3-D breast Tomosynthesis, bilateral Date and time of exam: 08/23/2025, 9:31 a.m. Comparisons: September 2021 through NovemberJuly 2024 Indications: Technique: Nonmagnified MLO, CC views of the breasts to been obtained, reconstructed from 3-D Tomosynthesis images. R2 computer aided detection program utilized for evaluation of suspicious masses and/or abnormal calcifications. 3-D Tomosynthesis images obtained. Findings: There are scattered areas of fibroglandular density. Stable postoperative changes in the right breast. No evidence of abnormal masses or suspicious calcifications. Impression: BI-RADS category 1: Negative findings (within normal) Recommend 1 year follow-up mammogram
== END | disposition home or self-care (01) ==
LOC: CDIM 09:18
PROVIDERS: PCP Physician Assistant; Referring Provider Internal Medicine Hematology & Oncology; Visit Provider Internal Medicine Hematology & Oncology
DX: R92.313 Mammographic fatty tissue density, bilateral breasts (principal); N63.13 Unspecified lump in the right breast, lower outer quadrant; C50.511 Malignant neoplasm of lower-outer quadrant of right female breast
CPT/HCPCS: 76641; 77062; 77066; G0279

== ENCOUNTER 2025-10-04 15:29 | Outpatient (RCR) | payer BC, SELFPAY | END 2025-10-17 23:59 | disposition home or self-care (01) | LOC: SCTC 15:29 | PROVIDERS: PCP Physician Assistant; Referring Provider Physician Assistant; Visit Provider Nurse Practitioner Family | DX: Z51.11 Encounter for antineoplastic chemotherapy (principal); C50.811 Malignant neoplasm of overlapping sites of right female breast; Z17.0 Estrogen receptor positive status [ER+]; Z17.21 Progesterone receptor positive status; Z17.32 Human epidermal growth factor receptor 2 negative status; Z90.11 Acquired absence of right breast and nipple; Z79.811 Long term (current) use of aromatase inhibitors; E66.01 Morbid (severe) obesity due to excess calories | CPT/HCPCS: 96402; 99212; J1950; G0463 ==

== ENCOUNTER → 2025-10-15 | Outpatient (CLI) | payer BC, SELFPAY ==
[2025-10-15 08:23] LABS: Misc Send Out* See Sep Rpt
[2025-10-15 09:37] LABS: Basophils # (Auto) 0.1 Thou/mm3 (0.0-0.2); Basophils % (Auto) 2 % (0-2.5); Eosinophils # (Auto) 0.2 Thou/mm3 (0.0-0.5); Eosinophils % (Auto) 2 % (0-10); Hematocrit 42.9 % (36.0-46.0); Hemoglobin 14.0 g/dL (12.0-16.0); Immature Granulocytes Auto 0.08 Thou/mm3 (0.00-0.00); Lymphocytes # (Auto) 2.1 Thou/mm3 (1.0-4.8); Lymphocytes % (Auto) 28 % (10-50); Mean Corpuscular HGB Conc 32.6 g/dl (31.0-37.0); Mean Corpuscular Hemoglobin 29.4 pg (25.0-35.0); Mean Corpuscular Volume 90 fL (80-100); Monocytes # (Auto) 0.5 Thou/mm3 (0.0-0.8); Monocytes % (Auto) 7 % (0-12); Neutrophils # (Auto) 4.4 Thou/mm3 (1.8-7.7); Neutrophils % (Auto) 60 % (37-80); Nucleated Red Blood Cell # 0.00 Thou/mm3 (0.00-0.00); Nucleated Red Blood Cell % 0 /100 WBC (0); Platelet Count 370 Thou/mm3 (140-440); RDW Standard Deviation 43.6 fL (36.4-46.3); Red Blood Count 4.77 Miln/mm3 (4.00-5.20); White Blood Count 7.4 Thou/mm3 (3.6-11.0)
[2025-10-15 09:47] LABS: Alanine Aminotransferase 23 U/L (10-49); Albumin, Serum 4.3 gm/dL (3.5-5.0); Albumin/Globulin Ratio 1.4 (1.2-2.2); Alkaline Phosphatase 97 U/L (46-116); Anion Gap 11 (7-16); Aspartate Amino Transferase 21 U/L (0-34); BUN/Creatinine Ratio 17 Ratio (12-20); Bilirubin,Total 0.4 mg/dL (0.3-1.2); Blood Urea Nitrogen 15 mg/dL (9-23); Calcium 9.3 mg/dL (8.3-10.6); Calcium (Corrected) 9.3 mg/dL (8.5-10.1); Carbon Dioxide 25.2 mMol/L (20.0-31.0); Cardiac Risk Estimate 4.2 RATIO (3.7-5.6); Chloride 106 mMol/L (98-107); Cholesterol 253 mg/dL (132-200); Creatinine (Component) 0.9 mg/dL (0.6-1.3); Globulin 3.1 gm/dL (2.3-3.5); Glucose 99 mg/dL (74-106); HDL Cholesterol 60 mg/dL (40-60); LDL Cholesterol,Calculated 169 mg/dL (0-130); Osmolality,Calculated 283 (275-295); Potassium 4.4 mMol/L (3.4-5.1); Sodium 142 mMol/L (136-145); Total Protein 7.4 gm/dL (5.7-8.2); Triglycerides 122 mg/dL (30-150); eGFR > 60 See Note
[2025-10-15 10:04] LABS: CA 15-3 5.3 U/mL (<32.4); Carcinoembryonic Antigen < 0.0 ng/mL (0.0-5.0)
== END | disposition home or self-care (01) ==
LOC: SCTO 07:58
PROVIDERS: PCP Family Medicine; Referring Provider Nurse Practitioner Family; Visit Provider Physician Assistant
DX: C50.511 Malignant neoplasm of lower-outer quadrant of right female breast (principal); E78.5 Hyperlipidemia, unspecified
CPT/HCPCS: 36415; 80053; 80061; 82378; 85025; 86300